=== PATIENT | female | born 1965 | race Native Hawaiian/Other Pacific Islander ===

== ENCOUNTER → 2019-02-16 15:51 | Outpatient (CLI) | payer OTHER, SELFPAY ==
--- NOTE | 2019-02-16 | DI.RAD.S_ITS ---
PROCEDURE: XR KNEE LT 3V INDICATIONS: Rt Shoulder Pain, Lt Knee Pain TECHNIQUE: 3 views of the knee were acquired. COMPARISON: None. FINDINGS: Bones: No fractures or dislocations. No suspicious bony lesions. Mild tricompartmental degenerative changes of the left knee are noted. Smooth cortical thickening of the proximal diaphysis of the left fibula is suggestive of the sequela of prior chronic healed fracture. 4 mm rounded well-corticated calcification inferior to the left patella may represent sequela of prior avulsion fracture or degenerative change. Soft tissues: No joint effusion. There is mild superior patellar enthesopathy. IMPRESSION: 1. Mild tricompartmental degenerative changes of the left knee. 2. Mild left superior patellar enthesopathy. Dictated by: Sean Fuentes M.D. on 02/16/2019 at 17:44 Approved by: Sean Fuentes M.D. on 02/16/2019 at 17:48
--- NOTE | 2019-02-16 | DI.RAD.S_ITS ---
PROCEDURE: XR SHOULDER RT MIN 2V INDICATIONS: Rt Shoulder Pain, Lt Knee Pain TECHNIQUE: 3 views of the shoulder were acquired. COMPARISON: None. FINDINGS: Bones: No fractures or dislocations. No suspicious bony lesions. Visualized ribs appear intact. Soft tissues: No suspicious soft tissue calcifications. IMPRESSION: No acute osseous abnormality of the right shoulder to explain patient's reported right shoulder pain. Consider MRI for further evaluation if there is continued clinical concern. Dictated by: Sean Fuentes M.D. on 02/16/2019 at 17:37 Approved by: Sean Fuentes M.D. on 02/16/2019 at 17:44
== END ==
PROVIDERS: PCP Family Medicine; Visit Provider Family Medicine
DX: M25.511 Pain in right shoulder (principal); M25.562 Pain in left knee; M17.12 Unilateral primary osteoarthritis, left knee
CPT/HCPCS: 73030; 73562

== ENCOUNTER → 2019-06-01 15:43 | Outpatient (CLI) | payer OTHER, SELFPAY ==
--- NOTE | 2019-06-01 15:47 | DI.US.S_ITS ---
PROCEDURE: US RENAL COMPLETE INDICATIONS: MICROSCOPIC HEMATURIA TECHNIQUE: Real-time scanning was performed of the kidneys and bladder, with image documentation. COMPARISON: None. FINDINGS: Kidneys: Kidneys are normal in size. Right kidney measures 9.7 cm long; left kidney measures 10.1 cm long. Right renal cortical thickness is 1.6 cm; left renal cortical thickness is 1.8 cm. Renal cortical echotexture is normal. No hydronephrosis or nephrolithiasis. No suspicious solid mass lesions. Bladder: Pre-void bladder volume is 40 mL. Post-void residual is 0 mL. Pre-void images demonstrate no intraluminal masses or stones. On pre-void images, bilateral ureteral jets are noted with color Doppler interrogation. (Of note, ureteral jets may not be detectable in up to 25% of cases due to insufficient differences in specific gravity between ureteral and bladder urine). Miscellaneous: No free pelvic fluid. IMPRESSION: No hydronephrosis or nephrolithiasis is found. Source of microscopic hemorrhage or is not seen. Followup contrast and noncontrast renal/urothelial imaging likely is warranted (CT IVP). Dictated by: Yomi Borjas M.D. on 06/01/2019 at 17:02 Approved by: Yomi Borjas M.D. on 06/01/2019 at 17:04
== END ==
PROVIDERS: PCP Family Medicine; Referring Provider Orthopaedic Surgery; Visit Provider Family Medicine
DX: R31.29 Other microscopic hematuria (principal)
CPT/HCPCS: 76770

== ENCOUNTER 2021-03-17 21:48 | Observation (INO) | payer OTHER, SELFPAY ==
[2021-03-17 21:52] VITALS: BP 131/79; PULSE 65; RESP 16; TEMP 36.6; O2SAT 96
[2021-03-17] MEDS: MAG HYDROX/ALUMINUM/SIMETH SUS 20 ML, LIDOCAINE VISCOUS 2% 15 ML PO (22:17)
[2021-03-17 22:19] LABS: Add Manual Diff / Slide Review NO; Basophils Absolute Auto 100 /uL (0-100); Basophils Percent Auto 0.4 % (0-2); Eosinophils Absolute Auto 400 /uL (0-450); Eosinophils Percent Auto 2.4 % (2-4); Hemoglobin 12.9 g/dL (12.0-16.0); Lymphocytes Absolute Auto 1600 /uL (1100-4500); Lymphocytes Percent Auto 9.8 % (25-40); Mean Corpuscular Hemoglobin 30.2 PG (26-34); Mean Corpuscular Volume 88.8 fL (80-100); Monocytes Absolute Auto 700 /uL (0-900); Neutrophils Absolute Auto 13700 /uL (1500-7000); Neutrophils Percent Auto 83.4 % (50-75); Platelet Count 273 X10^3/uL (150-400); Red Blood Cell Count 4.28 X10^6/uL (4.0-5.2); Red Cell Distribution Width 12.5 % (11.6-14.8); White Blood Cell Count 16.5 X10^3/uL (4.5-11.0)
[2021-03-17 22:24] LABS: Alanine Aminotransferase 24 IU/L (<35); Albumin 4.3 g/dL (3.5-5.0); Albumin Globulin Ratio 1.3 (1.0-2.8); Alkaline Phosphatase 79 U/L (38-126); Aspartate Aminotransferase 25 IU/L (14-36); Bilirubin Total 0.4 mg/dL (0.2-1.3); Blood Urea Nitrogen 21 mg/dL (7-17); Calcium 9.2 mg/dL (8.4-10.2); Carbon Dioxide 28 mmol/L (22-32); Chloride 104 mmol/L (98-107); Estimated Glomerular Filt Rate 42.5 mL/min (>60); Globulin 3.2 g/dL (1.7-4.1); Glucose 170 mg/dL (70-100); HEMOLYSIS < 15 (0-50); Lipase 154 U/L (23-300); Potassium 4.1 mmol/L (3.4-5.1); Sodium 140 mmol/L (137-145); Total Protein 7.5 g/dL (6.3-8.2)
[2021-03-17 22:35] LABS: Troponin I < 0.012 ng/mL (0.01-0.034)
[2021-03-18] VITALS (15 sets, daily range): BP systolic 90–114; BP diastolic 47–70; PULSE 67–110; RESP 14–20; TEMP 36.6–37.6; O2SAT 92–98; BMI 33.5
--- NOTE | 2021-03-18 00:16 | ED.GENADULT ---
HPI - General Adult General Chief complaint: Abdominal Pain Stated complaint: severe abd pain Time Seen by Provider: 03/18/21 00:08 Source: patient Mode of arrival: Ambulatory History of Present Illness HPI narrative: Patient is a 55-year-old female. Has had a prior history of a laparoscopic cholecystectomy. Is here for evaluation of what initially was described as abdominal pain in her epigastric region that has now migrated down to her right lower quadrant/right flank. Did start earlier in the day. Had some nausea no vomiting. No urinary symptoms. No diarrhea. Did try some Tums prior to arrival. Did receive a GI cocktail in triage prior to my evaluation which she states did help her symptoms a small amount but has since recovered. Related Data Allergies Allergy/AdvReac Type Severity Reaction Status Date / Time No Known Drug Allergies Allergy Verified 03/18/21 01:16 Review of Systems Constitutional Constitutional: Denies fever(s) Cardiovascular Cardiovascular: Denies chest pain and Denies dyspnea Respiratory Respiratory: Denies dyspnea Gastrointestinal Gastrointestinal: Reports abdominal pain, Denies change in bowel habits, Reports nausea and Denies vomiting Genitourinary Genitourinary: Denies dysuria Musculoskeletal Musculoskeletal: Reports system reviewed and no additional complaints, except as documented and Denies tingling Integumentary/Breasts Skin/Breast: Reports system reviewed and no additional complaints, except as documented Neurologic Neurologic: Denies tingling Hematologic/Lymphatic On Anticoagulants: No Patient History Surgical History Hx laparoscopic cholecystectomy Social History lives independently: Yes Exam Initial Vital Signs Initial Vital Signs: Vital Signs Temperature 97.9 F 03/17/21 21:52 Pulse Rate 65 03/17/21 21:52 Respiratory Rate 16 03/17/21 21:52 Blood Pressure 131/79 03/17/21 21:52 Pulse Oximetry 96 03/17/21 21:52 Const General: cooperative, comfortable, well developed and well groomed Limitations: mental status not altered Resp Effort & Inspection: normal respiratory effort Cardio Rate: regular rate GI Inspection: normal to inspection and non-distended Palpation: soft, No guarding and tender (Right-sided abdomen) Back/Spine/Pelvis Back: No CVA tenderness Skin General: no rashes or lesions noted Neuro General: patient alert, patient awake and moves all extremities Extrem General: capillary refill normal Psych Appearance: grossly normal and well kempt Course Orders Ordered: ED Orders 03/17/21 22:02 EKG-12 Lead Stat 03/17/21 22:06 Complete Blood Count AUTO DIFF Stat Comprehensive Metabolic Panel Stat Lipase Stat Trop I [Troponin I] Stat 03/18/21 00:17 CT abdomen pelvis w con Stat 03/18/21 01:15 Consult to General Surgery Stat 03/18/21 01:30 COVID19 - ADMIT (STUDIO DIRECTOR swab/PCR) Stat Sodium Chloride (Normal Saline 0.9%) 1,000 mls @ 125 mls/hr IV CONT ISAC Ondansetron HCl (Ondansetron 4 Mg/2 Ml Inj) 4 mg IV Q2HR PRN PRN Reason: Nausea And Vomiting Discontinued Medications Al Hydrox/Mg Hydrox/Simethicone 20 ml/ Lidocaine HCl 15 ml 0 ml PO NOW ONE Stop: 03/17/21 22:12 Last Admin: 03/17/21 22:17 Dose: 35 ml Documented by: YOAN Sodium Chloride (Normal Saline 0.9%) 1,000 mls @ 1,000 mls/hr IV BOLUS ONE Stop: 03/18/21 01:15 Last Infusion: 03/18/21 02:15 Dose: 0 mls/hr Documented by: Admin: 03/18/21 01:05 Dose: 1,000 mls/hr Documented by: YOAN Piperacillin Sod/Tazobactam (Sod 4.5 gm/ Sodium Chloride) 100 mls @ 200 mls/hr IV NOW ONE Stop: 03/18/21 01:06 Last Infusion: 03/18/21 02:16 Dose: 0 mls/hr Documented by: Admin: 03/18/21 01:24 Dose: 200 mls/hr Documented by: TERRI Morphine Sulfate (Morphine 4 Mg/Ml Inj) 4 mg IV NOW ONE Stop: 03/18/21 01:13 Last Admin: 03/18/21 01:23 Dose: 4 mg Documented by: TERRI Vital Signs Vital signs: Vital Signs - 8 hr 03/17/21 21:52 Temperature 97.9 F Pulse Rate 65 Respiratory Rate 16 Blood Pressure 131/79 Pulse Oximetry 96 Medical Decision Making Lab Data Lab results reviewed: Yes I reviewed the patient's lab results. Result diagrams: 03/17/21 22:06 03/17/21 22:06 Labs: Lab Results 03/17/21 03/17/21 Range/Units 22:06 22:06 WBC 16.5 H (4.5-11.0) X10^3/uL RBC 4.28 (4.0-5.2) X10^6/uL Hgb 12.9 (12.0-16.0) g/dL Hct 38.0 (36-46) % MCV 88.8 (80-100) fL MCH 30.2 (26-34) PG MCHC 34.0 (30-36) % RDW 12.5 (11.6-14.8) % Plt Count 273 (150-400) X10^3/uL Neut % (Auto) 83.4 H (50-75) % Lymph % (Auto) 9.8 L (25-40) % [place] % (Auto) 4.0 (3-14) % Eos % (Auto) 2.4 (2-4) % Baso % (Auto) 0.4 (0-2) % Neut # (Auto) 84123 H (5356-6256) /uL Lymph # (Auto) 1600 (4819-8126) /uL [place] # (Auto) 700 (0-900) /uL Eos # (Auto) 400 (0-450) /uL Baso # (Auto) 100 (0-100) /uL Sodium 140 (137-145) mmol/L Potassium 4.1 (3.4-5.1) mmol/L Chloride 104 (98-107) mmol/L Carbon Dioxide 28 (22-32) mmol/L BUN 21 H (7-17) mg/dL Creatinine 1.31 H (0.52-1.04) mg/dL Estimated GFR 42.5 L (>60) mL/min BUN/Creatinine Ratio 16.0 (6-22) Glucose 170 H (70-100) mg/dL Calcium 9.2 (8.4-10.2) mg/dL Total Bilirubin 0.4 (0.2-1.3) mg/dL AST 25 (14-36) IU/L ALT 24 (<35) IU/L Alkaline Phosphatase 79 (38-126) U/L Troponin I < 0.012 (0.01-0.034) ng/mL Total Protein 7.5 (6.3-8.2) g/dL Albumin 4.3 (3.5-5.0) g/dL Globulin 3.2 (1.7-4.1) g/dL Albumin/Globulin Ratio 1.3 (1.0-2.8) Lipase 154 (23-300) U/L Imaging Data CT scan - abdomen/pelvis: Radiologist's Impression: [address] [address] [address] Scan Report Signed Patient: Humera Castaneda MR#: [id number] : 1965 Acct:[id number] Age/Sex: 55 / F Date of Service: 03/18/21 Loc: ED Accession Number: [id number] ?? Procedure: CT abdomen pelvis w con Ordering Provider: Sal Mcneal D.O. PROCEDURE:? CT ABDOMEN PELVIS W CON ? INDICATIONS:? epigastric and Right sided abdominal pain ? TECHNIQUE:? After the administration of IV contrast, axial sections were acquired from the lung bases to the pubic symphysis.? Coronal and sagittal reformats were performed.? For radiation dose reduction, the following was used:? automated exposure control, adjustment of mA and/or kV according to patient size. ? COMPARISON:? None. ? FINDINGS:? Image quality:? Excellent.? ? Lung bases:? Unremarkable.? ? Heart:? No significant findings. ? ? ABDOMEN: Liver:? Liver is mildly enlarged with steatosis. Gallbladder:? The gallbladder has been removed.? ? Biliary ducts:? Unremarkable.? ? Pancreas:? Unremarkable.? ? Spleen:? Unremarkable.? ? Adrenal Glands:? Unremarkable.? ? Kidneys and Ureters:? Unremarkable.? ? ? Stomach and Bowel:? Stomach, small bowel loops, and colon are nonobstructive.? The appendix is enlarged measuring 1.4 cm. Appendicoliths are present.? Periappendiceal inflammatory changes present.? Partial perforation cannot be excluded. Peritoneum:? No abnormal intraperitoneal fluid.? No free air.? ? Ventral Wall: ? Fat containing ventral hernia is present with rectus diastasis measuring 2.1 cm. Abdominal Nodes:? No retroperitoneal or mesenteric adenopathy by size criteria.? Vessels:? Aorta and inferior vena cava are normal in size.? ? PELVIS: Pelvic Organs:? IUD is present.? 1.5 cm prominent follicle versus small cyst is present within the left ovary. Bladder:? Unremarkable.? ? Pelvic Nodes: No enlarged lymph nodes.? Miscellaneous: No inguinal hernias are seen. ? ? ? Bones:? Unremarkable.? IMPRESSION:? ? Enlarged appendix with inflammatory change and appendicoliths most consistent with appendicitis.? Partial perforation cannot be definitively excluded. ? The above findings were discussed with Dr. Sal Mcneal on 03/18/2021 at 12:51 a.m. ? ? Dictated by: Becky Sousa M.D. on 03/18/2021 at 0:50 ? ? Approved by: Becky Sousa M.D. on 03/18/2021 at 1:01 ECG Data Attestation: I personally reviewed and interpreted this ECG as follows: Interpretation: Sinus rhythm Ventricular rate is 66 Normal axis Normal QRS Normal QTC No ST T wave changes MDM Narrative Medical decision making narrative: GI cocktail only provided a very small amount of relief. She does have leukocytosis. Is afebrile. CT scan ordered because of this. Does show findings consistent with appendicitis. Patient was given antibiotics. Was made NPO. I did discuss the case with Dr. Cates who was on-call for General surgery. Patient was informed of the diagnosis. Holding orders were placed. Patient expressed understanding and agreement. Discharge Plan Departure Patient Disposition: Admitted as Observation Clinical Impression: Acute appendicitis Admit Date/Time: 03/18/21 01:21 Admit Provider: Myranda Cates
--- NOTE | 2021-03-18 00:17 | DI.CT.S_ITS ---
PROCEDURE: CT ABDOMEN PELVIS W CON INDICATIONS: epigastric and Right sided abdominal pain TECHNIQUE: After the administration of IV contrast, axial sections were acquired from the lung bases to the pubic symphysis. Coronal and sagittal reformats were performed. For radiation dose reduction, the following was used: automated exposure control, adjustment of mA and/or kV according to patient size. COMPARISON: None. FINDINGS: Image quality: Excellent. Lung bases: Unremarkable. Heart: No significant findings. ABDOMEN: Liver: Liver is mildly enlarged with steatosis. Gallbladder: The gallbladder has been removed. Biliary ducts: Unremarkable. Pancreas: Unremarkable. Spleen: Unremarkable. Adrenal Glands: Unremarkable. Kidneys and Ureters: Unremarkable. Stomach and Bowel: Stomach, small bowel loops, and colon are nonobstructive. The appendix is enlarged measuring 1.4 cm. Appendicoliths are present. Periappendiceal inflammatory changes present. Partial perforation cannot be excluded. Peritoneum: No abnormal intraperitoneal fluid. No free air. Ventral Wall: Fat containing ventral hernia is present with rectus diastasis measuring 2.1 cm. Abdominal Nodes: No retroperitoneal or mesenteric adenopathy by size criteria. Vessels: Aorta and inferior vena cava are normal in size. PELVIS: Pelvic Organs: IUD is present. 1.5 cm prominent follicle versus small cyst is present within the left ovary. Bladder: Unremarkable. Pelvic Nodes: No enlarged lymph nodes. Miscellaneous: No inguinal hernias are seen. Bones: Unremarkable. IMPRESSION: Enlarged appendix with inflammatory change and appendicoliths most consistent with appendicitis. Partial perforation cannot be definitively excluded. The above findings were discussed with Dr. Sal Mcneal on 03/18/2021 at 12:51 a.m. Dictated by: Becky Sousa M.D. on 03/18/2021 at 0:50 Approved by: Becky Sousa M.D. on 03/18/2021 at 1:01
[2021-03-18] MEDS: SODIUM CHLORIDE 0.9% 1,000 ML 1000 ML IV (01:05)
[2021-03-18] MEDS: MORPHINE 4 MG/ML INJ IV ×3 (01:23→09:33)
[2021-03-18] MEDS: PIPERACILLIN/TAZO 4.5 GM in SODIUM CHLORIDE 0.9% 100 ML 200 ML IV (01:24)
[2021-03-18 02:36] LABS: COVID19 - ADMIT (NP swab/PCR) Negative (Negative)
[2021-03-18] MEDS: SODIUM CHLORIDE 0.9% 1,000 ML 125 ML IV (03:10)
--- NOTE | 2021-03-18 07:45 | PM.HP.1 ---
History of Present Illness History of Present Illness Date Patient Seen: 03/18/21 Time Patient Seen: 07:45 Date of Onset of Symptoms: 03/17/21 Chief complaint: severe abd pain Narrative: Sudden onset abdominal pain localizing to RLQ. No previous episodes. Pain is sharp and persistent. Anorexia, no diarrhea or emesis. CT scan c/w appendicitis and fecal liths. Patient History Surgical History Hx laparoscopic cholecystectomy Family & Social History Social History: lives independently Yes Meds Home Medications and Allergies Allergies Allergy/AdvReac Type Severity Reaction Status Date / Time No Known Drug Allergies Allergy Verified 03/18/21 01:16 Review of Systems Review of Systems ROS: Yes All systems reviewed with the patient and are negative except as otherwise documented Exam Vital Signs (past 8 hours): - 03/18/21 01:30 03/18/21 06:26 Pulse Rate 82 110 H Respiratory Rate 18 20 Blood Pressure 114/62 113/63 Pulse Oximetry 98 94 Oxygen Delivery Method Room Air Const General: cooperative and comfortable Nutritional Appearance: overweight HENWV Head: normocephalic and atraumatic Ears: hearing grossly normal bilaterally Eyes Sclera: sclerae normal Neck Neck: trachea midline Chest Chest: normal inspection of the chest Resp Effort & Inspection: normal respiratory effort and able to speak in complete sentences Cardio Rate: tachycardic Rhythm: regular rhythm GI Inspection: normal to inspection and obesity Palpation: soft Other: tenderness in RLQ Skin General: elasticity normal Lesions: no lesions Rashes: no rashes Neuro General: patient alert and patient oriented x3 Extrem General: normal to inspection and full ROM Psych Appearance: grossly normal Judgment: judgment good Objective Labs Result Diagrams: 03/17/21 22:06 03/17/21 22:06 Labs: Laboratory Results - last 24 hr 03/17/21 03/17/21 03/18/21 22:06 22:06 01:30 WBC 16.5 H RBC 4.28 Hgb 12.9 Hct 38.0 MCV 88.8 MCH 30.2 MCHC 34.0 RDW 12.5 Plt Count 273 Neut % (Auto) 83.4 H Lymph % (Auto) 9.8 L [place] % (Auto) 4.0 Eos % (Auto) 2.4 Baso % (Auto) 0.4 Neut # (Auto) 16198 H Lymph # (Auto) 1600 [place] # (Auto) 700 Eos # (Auto) 400 Baso # (Auto) 100 Sodium 140 Potassium 4.1 Chloride 104 Carbon Dioxide 28 BUN 21 H Creatinine 1.31 H Estimated GFR 42.5 L BUN/Creatinine Ratio 16.0 Glucose 170 H Calcium 9.2 Total Bilirubin 0.4 AST 25 ALT 24 Alkaline Phosphatase 79 Troponin I < 0.012 Total Protein 7.5 Albumin 4.3 Globulin 3.2 Albumin/Globulin Ratio 1.3 Lipase 154 SARS-CoV-2 (PCR) Negative Assessment & Plan Assessment & Plan narrative: acute appendicitis, obese, h/o GERD Plan: Lap appy with disposition to be determined COVID-19 COVID-19 status: Negative Time Spent With Patient Critical Care time: I spent a total of [] minutes of critical care time on this patient's care today; this time is exclusive of procedural time.
[2021-03-18] MEDS: LACTATED RINGERS 1,000 ML 100 ML IV ×2 (09:27→10:28)
[2021-03-18] MEDS: CELECOXIB 200 MG CAPSULE PO (10:26)
[2021-03-18] MEDS: GABAPENTIN 300 MG CAPSULE PO (10:26)
--- NOTE | 2021-03-18 11:29 | SUR.OPER ---
Supine on padded OR bed, head on pillow, arms padded and tucked at sides, legs uncrossed, safety belt at thigh, tape over blanket over lower legs .
[2021-03-18] MEDS: BUPIVACAINE 0.25% (PF) 30 ML, EPINEPHrine 0.15 MG INJ (11:35)
--- NOTE | 2021-03-18 12:04 | P.OP_ITS ---
Operative Date/Time/Diagnoses Date of procedure: 03/18/21 Time of procedure: 12:05 Pre-op diagnosis: appendicitis, umbilical hernia Post-op diagnosis: same Procedure & Clinicians Procedure: laparoscopic appendectomy with umbilical hernia repair primary Same procedure as scheduled: Yes Indications: appendicitis along with an existing umbilical hernia Click Yes if Unassisted: Yes Anesthesia Type: General Operative Notes Findings: gangrenous appendicitis, fat containing umbilical hernia. Closure Type: primary Specimen(s): other ( appendix) Estimated Blood Loss (mL): 20 Blood products transfused: none Procedure in detail: preop diagnosis: Acute appendicitis, umbilical hernia Postop diagnosis: Same Operative procedure: Laparoscopic appendectomy with primary repair umbilical hernia Surgeon: Lidia Cates MD Anesthetic: General with ET tube intubation Findings: Gangrenous appendicitis, fat containing umbilical hernia Procedure: Patient is placed in a supine position. Prepped and draped in sterile fashion. Infraumbilical port site was placed by reducing umbilical hernia using the existing defect with some extension sharply for the port. Insufflation again in all other ports were placed under direct vision including a 5 mm port suprapubic area and a 5 mm port in the left lateral abdomen. Lateral wall adhesions taken down with electrocautery. The appendix was mobilized and exposed the mesentery could be taken down with electrocautery u sing a Yesy device. Base the appendix was healthy appearing in nature. Stapling device was used to amputate the appendix which was then placed into an Endo-Catch bag. During the procedure there was bleeding at the mesentery of the appendix. This was addressed with direct pressure using a 4 x 8 sponge. Sponge was placed into an Endo-Catch bag with the appendix prior to removal. I did have evaluated the area for hemostasis. Irrigated to a clear return. And then removed all ports to being closure. Closure consisted of interrupted 0 Vicryl for fascial closure of the infraumbilical port site which included repair of the umbilical hernia primarily. Skin was closed a running 4-0 Vicryl. Steri-Strips and sterile dressings were placed. Patient was awakened, extubated, taken to recovery room in stable condition. Needle, instrument, sponge counts were correct. Blood loss: 20 mL Specimen: Appendix Complications: none Post-operative Condition: stable Disposition: PACU
--- NOTE | 2021-03-18 12:15 | PATH_ITS ---
[facility] Accession Number: [id number] . 01 Material submitted: . appendix - APPENDIX . 02 Diagnosis: Appendix, Appendectomy: Acute appendicitis and serositis with features suggestive of perforation. MR 03/20/2021 1545 Local . 02 Electronically signed: . Chanel Mansfield MD, Pathologist NPI- [id number] . 01 Gross description: . The specimen is received in formalin labeled appendix and consists of a 6.0 cm in length x 1.0 cm in diameter vermiform appendix with attached snyder-yellow lobulated mesoappendix measuring 4.0 x 2.0 x 1.2 cm. The serosa is snyder-pink to snyder-green with focal areas of disruption and purulent exudate. Sectioning reveals a snyder-pink focally hemorrhagic mucosa and a lumen measuring 0.8 cm in diameter. [employer] sections are submitted to include the en face margin (blue), central cross sections and bisected tip in cassettes A1-A2. ([id number]) /[facility] 03/19/2021 1840 Local . 02 Pathologist provided ICD-10: K35.80 . 02 CPT . 178430 Performed at: 01 [facility] [address], [place], [place] [id number] MD Agustin Marcano MD Phone: [phone] Performed at: 02 [facility] [address] [place], [place] [id number] MD Bren Tucker MD Phone: [phone]
[2021-03-18] MEDS: OXYCODONE/ACETAMINOPHEN 5/325 TABLET 1 TAB PO (13:17)
--- NOTE | 2021-03-18 15:36 | SUR.PHASEII ---
Late entry: Assumed care from MARIANA Wu. Pt given incentive spirometer with instructions on use. Also given verbal and written instructions to follow uup with her PCP to look into getting evaluated for sleep apnea as instructed by her Anesthesiologist Dr. Tracey. While here, pts dressing remained c/d/i. Pt given applesauce and then pain med prior to d/c. Pt left when ready and left in stable condition.
== END 2021-03-18 13:45 | disposition home or self-care (01) ==
LOC: ED 03-18 01:21 → AC 03-18 01:22
PROVIDERS: Admitting Provider Surgery; Emergency Provider Emergency Medicine; PCP Family Medicine; Referring Provider Emergency Medicine; Visit Provider Surgery
PROC: 0DTJ4ZZ Resection of Appendix, Percutaneous Endoscopic Approach (ICD-10-PCS; CPT 44970; principal; 2021-03-18 11:00)
DX: K35.891 Other acute appendicitis without perforation, with gangrene (principal); K42.9 Umbilical hernia without obstruction or gangrene; E78.5 Hyperlipidemia, unspecified; G25.81 Restless legs syndrome; K21.9 Gastro-esophageal reflux disease without esophagitis; Z20.822 Contact with and (suspected) exposure to COVID-19
CPT/HCPCS: 44970; 36415; 74177; 80053; 83690; 84484; 85025; 87635; 93005; 93010; 96361; 96365; 96375; 96376; 99218; 99284; C9803; G0378; J0171; J1100; J1885; J2250; J2270; J2405; J2543; J2704; J3010; Q9967